=== PATIENT | female | born 1985 | race Caucasian/White ===

== ENCOUNTER 2023-01-16 15:38 | Emergency (ER) | payer OTHER, MEDICAID, SELFPAY ==
[2023-01-16 16:00] VITALS: BP 164/94; PULSE 99; RESP 20; TEMP 36.3; O2SAT 99; BMI 23.9
--- NOTE | 2023-01-16 16:13 | DI.RAD.S_ITS ---
PROCEDURE: XR CHEST 1V INDICATIONS: chest pain TECHNIQUE: One view of the chest was acquired. COMPARISON: None. FINDINGS: Surgical changes and devices: None. Lungs and pleura: Lungs are clear. No pleural effusions or pneumothorax. Mediastinum: Mediastinal contours appear normal. Heart size is normal. Bones and chest wall: No suspicious bony lesions. Overlying soft tissues appear unremarkable. IMPRESSION: No acute cardiopulmonary pathology. Dictated by: Jorge Bolanos M.D. on 01/16/2023 at 16:48 Approved by: Jorge Bolanos M.D. on 01/16/2023 at 16:49
[2023-01-16 16:23] LABS: Prothrombin Time 11.6 SECONDS (10.1-12.7)
[2023-01-16] MEDS: ACETAMINOPHEN 325 MG TABLET 650 MG PO (16:24)
[2023-01-16] MEDS: ASPIRIN 81 MG CHEW TAB 324 MG PO (16:24)
[2023-01-16] MEDS: LORazepam 0.5 MG TABLET PO (16:24)
[2023-01-16 16:25] LABS: Add Manual Diff / Slide Review NO; Basophils Absolute Auto 100 /uL (0-100); Basophils Percent Auto 0.9 % (0-2); Eosinophils Absolute Auto 0 /uL (0-450); Eosinophils Percent Auto 0.3 % (2-4); Hematocrit 39.1 % (36-46); Hemoglobin 13.3 g/dL (12.0-16.0); Lymphocytes Absolute Auto 1400 /uL (1100-4500); Mean Corpuscular Hemoglobin 31.9 PG (26-34); Mean Corpuscular Volume 93.8 fL (80-100); Monocytes Absolute Auto 300 /uL (0-900); Monocytes Percent Auto 3.2 % (3-14); Neutrophils Absolute Auto 6700 /uL (1500-7000); Neutrophils Percent Auto 78.6 % (50-75); PTT Partial Thromboplastin Tim 30 SECONDS (26-36); Platelet Count 365 X10^3/uL (150-400); Red Blood Cell Count 4.16 X10^6/uL (4.0-5.2); Red Cell Distribution Width 12.7 % (11.6-14.8); White Blood Cell Count 8.5 X10^3/uL (4.5-11.0)
[2023-01-16 16:27] LABS: Alanine Aminotransferase 14 IU/L (<35); Albumin 4.9 g/dL (3.5-5.0); Albumin Globulin Ratio 1.5 (1.0-2.8); Alkaline Phosphatase 62 U/L (38-126); Aspartate Aminotransferase 19 IU/L (14-36); BUN Creatinine Ratio 12.3 (6-22); Bilirubin Total 0.5 mg/dL (0.2-1.3); Blood Urea Nitrogen 9 mg/dL (7-17); Calcium 9.5 mg/dL (8.4-10.2); Carbon Dioxide 21 mmol/L (22-32); Chloride 102 mmol/L (98-107); Creatine Kinase 37 U/L (30-135); Estimated Glomerular Filt Rate > 60 mL/min (>60); Globulin 3.2 g/dL (1.7-4.1); Glucose 145 mg/dL (70-100); HEMOLYSIS < 15 (0-50); Lipase 28 U/L (23-300); Magnesium 1.9 mg/dL (1.6-2.3); Potassium 3.8 mmol/L (3.4-5.1); Sodium 135 mmol/L (137-145); Total Protein 8.1 g/dL (6.3-8.2)
[2023-01-16 16:38] LABS: Troponin I < 0.012 ng/mL (0.01-0.034)
[2023-01-16 19:02] VITALS: O2SAT 99
[2023-01-16 19:03] VITALS: BP 161/97; O2SAT 99
[2023-01-16 19:05] VITALS: BP 161/97; PULSE 89; O2SAT 97
[2023-01-16 19:31] VITALS: BP 120/71; PULSE 78; O2SAT 99
[2023-01-16 19:40] LABS: Creatine Kinase 32 U/L (30-135)
[2023-01-16 19:53] LABS: Troponin I < 0.012 ng/mL (0.01-0.034)
[2023-01-16 20:00] VITALS: BP 121/75; PULSE 85; O2SAT 98
--- NOTE | 2023-01-16 20:00 | ED.CHESTPAIN ---
HPI - Chest Pain General Chief Complaint: Chest Pain Stated Complaint: Chest pain, SOB, high heartrate, dizzy Time Seen by Provider: 01/16/23 18:07 Source: patient Mode of arrival: Ambulatory Limitations: no limitations History of Present Illness HPI narrative: Patient is a 37-year-old female. She has had a history anxiety in the past. Has been on medications in the past but does not taking his medications now. States she has been under quite a bit of stress recently. Today she did not feel like she was feeling particularly anxious but had an episode of chest discomfort and shortness of breath and high heart rate and dizziness. All of her symptoms now completely resolved. Looking back on his she states that she thinks that she was having a panic attack of the time. She reports no other medical issues. No prior cardiac issues. Related Data Allergies Allergy/AdvReac Type Severity Reaction Status Date / Time No Known Drug Allergies Allergy Verified 01/16/23 16:23 Review of Systems Constitutional Constitutional: Reports system reviewed and no additional complaints, except as documented Cardiovascular Cardiovascular: Reports system reviewed and no additional complaints, except as documented Respiratory Respiratory: Reports system reviewed and no additional complaints, except as documented Gastrointestinal Gastrointestinal: Reports system reviewed and no additional complaints, except as documented Genitourinary Genitourinary: Reports system reviewed and no additional complaints, except as documented Psychiatric Psychiatric: Reports system reviewed and no additional complaints, except as documented Allergic/Immunologic Allergic/Immunologic: Reports system reviewed and no additional complaints, except as documented Patient History Social History Smoking Status: Current every day smoker Smoking Status: Current every day smoker alcohol intake frequency: 3 or more drinks per day Substance Use Type: does not use Exam Initial Vital Signs Initial Vital Signs: Vital Signs Temperature 97.3 F L 01/16/23 16:00 Pulse Rate 99 H 01/16/23 16:00 Respiratory Rate 20 01/16/23 16:00 Blood Pressure 164/94 H 01/16/23 16:00 Pulse Oximetry 99 01/16/23 16:00 Oxygen Delivery Method Room Air 01/16/23 16:00 Const General: cooperative, comfortable and No ill appearing HENMT Head: normal to inspection and normocephalic Resp Effort & Inspection: normal respiratory effort Auscultation: clear to auscultation bilaterally Cardio Rate: regular rate Rhythm: regular rhythm GI Inspection: normal to inspection Skin General: no rashes or lesions noted Neuro General: patient alert, patient awake and moves all extremities Extrem General: capillary refill normal Scores HEART Score Heart Score history: Slightly Suspicious Heart Score EKG: Normal Heart Score Age: < 45 years old Heart Score risk factors: No known risk factors Heart Score troponin: < or = to normal limit Heart Score Total: 0 Course Orders Ordered: ED Orders 01/16/23 19:20 Troponin & CK Cardiac Panel Stat Discontinued Medications Acetaminophen (Acetaminophen 325 Mg Tablet) 650 mg PO NOW ONE Stop: 01/16/23 16:18 Last Admin: 01/16/23 16:24 Dose: 650 mg Documented By: AMERICA Aspirin (Aspirin 81 Mg Chew Tab) 324 mg PO NOW ONE Stop: 01/16/23 16:14 Last Admin: 01/16/23 16:24 Dose: 324 mg Documented By: AMERICA Lorazepam (Lorazepam 0.5 Mg Tablet) 0.5 mg PO NOW ONE Stop: 01/16/23 16:14 Last Admin: 01/16/23 16:24 Dose: 0.5 mg Documented By: AMERICA Vital Signs Vital signs: Vital Signs - 8 hr 01/16/23 19:05 01/16/23 19:02 01/16/23 19:03 Pulse Rate 89 Blood Pressure 161/97 H Pulse Oximetry 97 99 99 Oxygen Delivery Method Room Air Room Air Room Air 01/16/23 19:03 01/16/23 19:31 01/16/23 19:31 Pulse Rate 78 Blood Pressure 161/97 H 120/71 Pulse Oximetry 99 Oxygen Delivery Method Room Air 01/16/23 20:00 01/16/23 20:00 Pulse Rate 85 Blood Pressure 121/75 Pulse Oximetry 98 Oxygen Delivery Method Room Air MDM - Chest Pain Lab Data Attestation: I reviewed the patient's lab results. 01/16/23 16:10 01/16/23 16:10 Labs: Lab Results 01/16/23 01/16/23 01/16/23 Range/Units 16:10 16:10 16:10 WBC 8.5 (4.5-11.0) X10^3/uL RBC 4.16 (4.0-5.2) X10^6/uL Hgb 13.3 (12.0-16.0) g/dL Hct 39.1 (36-46) % MCV 93.8 (80-100) fL MCH 31.9 (26-34) PG MCHC 34.0 (30-36) % RDW 12.7 (11.6-14.8) % Plt Count 365 (150-400) X10^3/uL Neut % (Auto) 78.6 H (50-75) % Lymph % (Auto) 17.0 L (25-40) % Mccracken % (Auto) 3.2 (3-14) % Eos % (Auto) 0.3 L (2-4) % Baso % (Auto) 0.9 (0-2) % Neut # (Auto) 6700 (8017-3047) /uL Lymph # (Auto) 1400 (3406-0783) /uL Mccracken # (Auto) 300 (0-900) /uL Eos # (Auto) 0 (0-450) /uL Baso # (Auto) 100 (0-100) /uL PT 11.6 (10.1-12.7) SECONDS INR 1.0 (0.9-1.3) APTT 30 (26-36) SECONDS Sodium 135 L (137-145) mmol/L Potassium 3.8 (3.4-5.1) mmol/L Chloride 102 (98-107) mmol/L Carbon Dioxide 21 L (22-32) mmol/L BUN 9 (7-17) mg/dL Creatinine 0.73 (0.52-1.04) mg/dL Estimated GFR > 60 (>60) mL/min BUN/Creatinine Ratio 12.3 (6-22) Glucose 145 H (70-100) mg/dL Calcium 9.5 (8.4-10.2) mg/dL Magnesium 1.9 (1.6-2.3) mg/dL Total Bilirubin 0.5 (0.2-1.3) mg/dL AST 19 (14-36) IU/L ALT 14 (<35) IU/L Alkaline Phosphatase 62 (38-126) U/L Total Creatine Kinase 37 (30-135) U/L CK-MB (CK-2) TNP CK-MB (CK-2) Rel Index TNP Troponin I < 0.012 (0.01-0.034) ng/mL Total Protein 8.1 (6.3-8.2) g/dL Albumin 4.9 (3.5-5.0) g/dL Globulin 3.2 (1.7-4.1) g/dL Albumin/Globulin Ratio 1.5 (1.0-2.8) Lipase 28 (23-300) U/L 01/16/23 Range/Units 19:20 WBC (4.5-11.0) X10^3/uL RBC (4.0-5.2) X10^6/uL Hgb (12.0-16.0) g/dL Hct (36-46) % MCV (80-100) fL MCH (26-34) PG MCHC (30-36) % RDW (11.6-14.8) % Plt Count (150-400) X10^3/uL Neut % (Auto) (50-75) % Lymph % (Auto) (25-40) % Mccracken % (Auto) (3-14) % Eos % (Auto) (2-4) % Baso % (Auto) (0-2) % Neut # (Auto) (3714-4471) /uL Lymph # (Auto) (9637-0421) /uL Mccracken # (Auto) (0-900) /uL Eos # (Auto) (0-450) /uL Baso # (Auto) (0-100) /uL PT (10.1-12.7) SECONDS INR (0.9-1.3) APTT (26-36) SECONDS Sodium (137-145) mmol/L Potassium (3.4-5.1) mmol/L Chloride (98-107) mmol/L Carbon Dioxide (22-32) mmol/L BUN (7-17) mg/dL Creatinine (0.52-1.04) mg/dL Estimated GFR (>60) mL/min BUN/Creatinine Ratio (6-22) Glucose (70-100) mg/dL Calcium (8.4-10.2) mg/dL Magnesium (1.6-2.3) mg/dL Total Bilirubin (0.2-1.3) mg/dL AST (14-36) IU/L ALT (<35) IU/L Alkaline Phosphatase (38-126) U/L Total Creatine Kinase 32 (30-135) U/L CK-MB (CK-2) TNP CK-MB (CK-2) Rel Index TNP Troponin I < 0.012 (0.01-0.034) ng/mL Total Protein (6.3-8.2) g/dL Albumin (3.5-5.0) g/dL Globulin (1.7-4.1) g/dL Albumin/Globulin Ratio (1.0-2.8) Lipase (23-300) U/L Point of Care Testing Test Results Negative Urine Dip Bedside Urine Glucose Negative Bedside Urine Bilirubin - Negative Bedside Urine Ketone - Negative Urine Specific Marina 1.005 Bedside Urine Occult Blood - Negative Bedside Urine pH 6.0 Bedside Urine Protein - Negative Bedside Urine Urobilinogen - Negative Bedside Urine Nitrite - Negative Bedside Urine Leukocytes - Negative Esterase Imaging Data Chest x-ray: Radiologist's Impression: PROCEDURE:? XR CHEST 1V ? INDICATIONS:? chest pain ? TECHNIQUE:? One view of the chest was acquired.? ? COMPARISON:? None. ? FINDINGS:? ? Surgical changes and devices:? None.? ? Lungs and pleura:? Lungs are clear.? No pleural effusions or pneumothorax.? ? Mediastinum:? Mediastinal contours appear normal.? Heart size is normal.? ? Bones and chest wall:? No suspicious bony lesions.? Overlying soft tissues appear unremarkable.? ? IMPRESSION:? No acute cardiopulmonary pathology. ECG Data Attestation: I personally reviewed and interpreted this ECG as follows: Interpretation: Sinus rhythm Ventricular rate is 70 Normal axis Normal QRS Normal QTC No ST T wave changes Repeat EKG Sinus rhythm Ventricular rate is 71 Normal axis Normal QRS Normal QTC No ST T wave changes MDM Narrative Medical decision making narrative: Patient has a low risk heart score. Nonischemic EKG. Troponins negative x2. Chest x-ray is unremarkable. I have low suspicion for ACS. I have a very high suspicion that her symptoms today were related to anxiety/ panic attack. I did discuss this with her and she agrees. We will hold on further workup for now. She was given return precautions and follow-up instructions. She expressed understanding and agreement plan. Discharge Plan Departure Patient Disposition: Home Clinical Impression: Atypical chest pain, Anxiety Instructions: DI for Atypical Chest Pain Activity Restrictions/Additional Instructions: Recommend that you continue to take all of your medications as directed. Contact your primary doctor for a follow-up. Return to the emergency department for new or worsening symptoms. Stand Alone Forms: Patient Portal/API
== END 2023-01-16 20:29 | disposition home or self-care (01) ==
PROVIDERS: Emergency Medicine; Emergency Provider Emergency Medicine
DX: R07.9 Chest pain, unspecified (principal); F41.9 Anxiety disorder, unspecified
CPT/HCPCS: 36415; 71045; 80053; 81003; 81025; 82550; 83690; 83735; 84484; 85025; 85610; 85730; 93005; 99284